=== PATIENT | female | born 1990 | race Caucasian/White ===

== ENCOUNTER 2018-10-10 10:10 | Emergency (ER) | payer MEDICAID ==
[~2018-10-10] VITALS: Ht 157.5 cm; Wt 77.1 kg
[2018-10-10 10:21] VITALS: BP 113/75
--- NOTE | 2018-10-10 10:29 | NUR ---
c/o hacking dry cough x 3 wks with no relief from over the counter dm cough medicine and aleve now with throat pain -- no drooling or muffle voice noted at this time---mild nare flare no other accessory muscle use noted
[2018-10-10] MEDS ORDERED: ALBUTEROL SULFATE/IPRATROPIU 3 ML SOL IH ONE (11:00)
--- NOTE | 2018-10-10 11:30 | NUR ---
pt resting comfortably in her bed. got the breathing treatment.
[2018-10-10] MEDS ORDERED: LEVOFLOXACIN 750 MG TAB PO ONE (12:05)
[2018-10-10 12:26] VITALS: BP 115/67
--- NOTE | 2018-10-10 12:26 | NUR ---
Patient discharged with v/s stable. Written and verbal after care instructions given and explained. Patient alert, oriented and verbalized understanding of instructions. Ambulatory with steady gait. All questions addressed prior to discharge. ID band removed. Patient advised to follow up with PMD. Rx of albuterol, levofloxacin, ibuprofentessalon perles given. Patient educated on indication of medication including possible reaction and side effects. Opportunity to ask questions provided and answered.
== END 2018-10-10 12:26 | disposition home or self-care (01) ==
LOC: MED 10:10
DX: J18.9 Pneumonia, unspecified organism (principal)
CPT/HCPCS: 71046; 81025; 94640; 99283; J7620

== ENCOUNTER 2022-05-14 13:11 | Emergency (ER) | payer MEDICAID, OTHER ==
[~2022-05-14] VITALS: Ht 157.5 cm; Wt 68.5 kg
[2022-05-14 13:18] VITALS: BP 109/79
--- NOTE | 2022-05-14 13:28 | NUR ---
COVID, FLU SWABS DONE.
--- NOTE | 2022-05-14 13:29 | NUR ---
C/O COUGH, SORE THROAT, CONGESTION, SWANN X 1 MONTH. PMH: DENIES
[2022-05-14] MEDS ORDERED: FLONAS NS (13:46)
[2022-05-14] MEDS ORDERED: PROM118S5 PO (13:46)
[2022-05-14] MEDS ORDERED: AMOX1TAB8 PO (13:46)
--- NOTE | 2022-05-14 14:12 | NUR ---
Patient discharged with v/s stable. Written and verbal after care instructions ABOUT SINUSITIS given and explained. Patient alert, oriented and verbalized understanding of instructions. Ambulatory with steady gait. All questions addressed prior to discharge. ID band removed. Patient advised to follow up with PMD. Rx of AMOX-CLAV, FLONASE NASAL, PROMETHAZINE-DM SYRUP given. Patient educated on indication of medication including possible reaction and side effects. Opportunity to ask questions provided and answered.
== END 2022-05-14 14:10 | disposition home or self-care (01) ==
LOC: MED 13:11
DX: J98.8 Other specified respiratory disorders (principal); Z20.822 Contact with and (suspected) exposure to COVID-19
CPT/HCPCS: 99283

== ENCOUNTER 2023-07-07 19:07 | Emergency (ER) | payer OTHER ==
[~2023-07-07] VITALS: Ht 157.5 cm; Wt 69.9 kg
[~2023-07-07 19:07] MED LIST: AMOX1TAB8 PO; FLONAS NS; PROM118S5 PO
[2023-07-07 19:29] VITALS: BP 123/64; PULSE 88; RESP 17; TEMP 98.5; O2SAT 95
[2023-07-07] MEDS ORDERED: BENZ150C2 PO (19:51)
[2023-07-07] MEDS ORDERED: SUD30 PO (19:51)
== END 2023-07-07 20:25 | disposition home or self-care (01) ==
LOC: MED 19:07
DX: J06.9 Acute upper respiratory infection, unspecified (principal); Z79.899 Other long term (current) drug therapy
CPT/HCPCS: 99283